=== PATIENT | female | born 1980 | race Caucasian/White ===

== ENCOUNTER 2019-03-07 06:07 | Day surgery (SDC) | payer BC ==
[~2019-03-07] VITALS: Ht 165.1 cm; Wt 70.7 kg
[2019-03-07] MEDS ORDERED: IBUP400 PO (07:00)
[2019-03-07] MEDS ORDERED: ACYC400 PO (07:01)
[2019-03-07] MEDS ORDERED: Women's Daily1 EACH PO (07:02)
[2019-03-07] MEDS ORDERED: Sleep Aid25 M1 PO (07:02)
[2019-03-07] MEDS ORDERED: ALBU90OI INH (07:03)
== END 2019-03-07 09:14 | disposition home or self-care (01) ==
LOC: ORSCSDS 06:07
PROVIDERS: Podiatrist Foot & Ankle Surgery
PROC: 0QSN04Z Reposition Right Metatarsal with Internal Fixation Device, Open Approach (ICD-10-PCS; principal; 2019-03-07 07:30)
PROC: 0SNP0ZZ Release Right Toe Phalangeal Joint, Open Approach (ICD-10-PCS; principal; 2019-03-07 07:30)
PROC: 0L8V0ZZ Division of Right Foot Tendon, Open Approach (ICD-10-PCS; principal; 2019-03-07 07:30)
DX: M20.11 Hallux valgus (acquired), right foot (principal); M20.41 Other hammer toe(s) (acquired), right foot; J45.909 Unspecified asthma, uncomplicated; Z79.899 Other long term (current) drug therapy
CPT/HCPCS: C1713; C1769; J0171; J0690; J2250; J2704; J3010; J7120

== ENCOUNTER → 2019-05-21 | Outpatient (CLI) | payer OTHER ==
[~2019-05-21] MED LIST: ACYC400 PO; ALBU90OI INH; IBUP400 PO; Sleep Aid25 M1 PO; Women's Daily1 EACH PO
[2019-05-23 22:07] LABS: CHLAMYDIA TRACHOMATIS, NAA Negative (Negative); NEISSERIA GONORRHOEAE, NAA Negative (Negative)
== END | disposition home or self-care (01) ==
LOC: LAB SHORT 15:43 → LAB 15:43
PROVIDERS: Obstetrics & Gynecology
DX: Z34.81 Encounter for supervision of other normal pregnancy, first trimester (principal)
CPT/HCPCS: 87491; 87591

== ENCOUNTER → 2019-12-23 | Outpatient (CLI) | payer OTHER ==
[~2019-12-23] MED LIST changes: +Loratadine10 MG PO; +PRENATAL TABLE1 EAC2
== END | disposition home or self-care (01) ==
LOC: LAB SHORT 17:22 → LAB 17:22
DX: O09.523 Supervision of elderly multigravida, third trimester (principal); Z3A.36 36 weeks gestation of pregnancy
CPT/HCPCS: 87081; 87653

== ENCOUNTER 2020-01-08 02:31 | Inpatient (IN) | payer OTHER ==
[~2020-01-08] VITALS: Ht 165.1 cm; Wt 81.8 kg
[~2020-01-08 02:31] MED LIST changes: -Loratadine10 MG PO; -PRENATAL TABLE1 EAC2
[2020-01-08] MEDS ORDERED: Loratadine10 MG PO (06:44)
[2020-01-08] MEDS ORDERED: PRENATAL TABLE1 EAC2 (06:45)
[2020-01-08 06:55] LABS: BASOPHILS ABSOLUTE AUTO 0.08 K/mm3 (0.00-0.23); BASOPHILS PERCENT AUTO 0 % (0-2); EOSINOPHILS ABSOLUTE AUTO 0.37 K/mm3 (0.00-0.68); EOSINOPHILS PERCENT AUTO 2 % (0-6); Hematocrit 43.8 % (33.0-51.0); Hemoglobin 14.3 g/dL (11.5-16.0); IMMATURE GRAN ABSOLUTE AUTO 0.17 K/mm3 (0.00-0.10); IMMATURE GRAN PERCENT AUTO 1 % (0-1); LYMPHOCYTES ABSOLUTE AUTO 2.52 K/mm3 (0.84-5.20); LYMPHOCYTES PERCENT AUTO 14 % (21-46); MONOCYTES ABSOLUTE AUTO 1.12 K/mm3 (0.16-1.47); MONOCYTES PERCENT AUTO 6 % (4-13); Mean Corpuscular HGB 30.2 pg (26.0-34.0); Mean Corpuscular HGB Conc 32.6 g/dL (31.5-36.5); Mean Corpuscular Volume 93 fL (80-100); Mean Platelet Volume 11.1 fL (9.1-12.4); NEUTROPHILS ABSOLUTE AUTO 14.43 K/mm3 (1.96-9.15); NEUTROPHILS PERCENT AUTO 77 % (41-73); Platelet Count 191 K/mm3 (150-400); RDW Coefficient Variation 13.1 % (11.7-14.2); Red Blood Cell Count 4.73 M/mm3 (3.80-5.20); White Blood Cell Count 18.69 K/mm3 (4.00-11.30)
--- NOTE | 2020-01-08 20:08 | NUR ---
pt and nb sleeping at this time. FOB states will call when they wake up for assessment and VS.
[2020-01-09 05:44] LABS: BASOPHILS ABSOLUTE AUTO 0.04 K/mm3 (0.00-0.23); BASOPHILS PERCENT AUTO 0 % (0-2); EOSINOPHILS PERCENT AUTO 3 % (0-6); Hematocrit 36.6 % (33.0-51.0); IMMATURE GRAN ABSOLUTE AUTO 0.11 K/mm3 (0.00-0.10); IMMATURE GRAN PERCENT AUTO 1 % (0-1); LYMPHOCYTES ABSOLUTE AUTO 2.71 K/mm3 (0.84-5.20); LYMPHOCYTES PERCENT AUTO 17 % (21-46); MONOCYTES PERCENT AUTO 7 % (4-13); Mean Corpuscular HGB 30.4 pg (26.0-34.0); Mean Corpuscular HGB Conc 32.8 g/dL (31.5-36.5); Mean Corpuscular Volume 93 fL (80-100); Mean Platelet Volume 11.1 fL (9.1-12.4); NEUTROPHILS ABSOLUTE AUTO 11.55 K/mm3 (1.96-9.15); NEUTROPHILS PERCENT AUTO 73 % (41-73); Platelet Count 170 K/mm3 (150-400); RDW Coefficient Variation 13.2 % (11.7-14.2); RDW Standard Deviation 44.9 fL (35.1-46.3); Red Blood Cell Count 3.95 M/mm3 (3.80-5.20); White Blood Cell Count 15.91 K/mm3 (4.00-11.30)
--- NOTE | 2020-01-09 14:23 | NUR ---
REPORT OFF TO ERASTO MOSES
== END 2020-01-09 15:25 | disposition home or self-care (01) | DRG 807 ==
LOC: BC 02:31 → OBS 02:31 → BC 06:32
PROVIDERS: ADMIT Obstetrics & Gynecology
PROC: 10E0XZZ Delivery of Products of Conception, External Approach (ICD-10-PCS; principal; 2020-01-08)
PROC: 0KQM0ZZ Repair Perineum Muscle, Open Approach (ICD-10-PCS; 2020-01-08)
PROC: 10907ZC Drainage of Amniotic Fluid, Therapeutic from Products of Conception, Via Natural or Artificial Opening (ICD-10-PCS; 2020-01-08)
PROC: 00HU33Z Insertion of Infusion Device into Spinal Canal, Percutaneous Approach (ICD-10-PCS; 2020-01-08)
PROC: 3E0R3BZ Introduction of Anesthetic Agent into Spinal Canal, Percutaneous Approach (ICD-10-PCS; 2020-01-08)
DX: O70.1 Second degree perineal laceration during delivery (principal); Z37.0 Single live birth; Z3A.38 38 weeks gestation of pregnancy
CPT/HCPCS: 36415; 51702; 59025; 85025; 86850; 86900; 86901; A9270; J1885; J2001; J2210; J2270; J2550; J2590; J3010; J7120

== ENCOUNTER → 2024-10-17 | Outpatient (CLI) | payer OTHER ==
[~2024-10-17] MED LIST changes: +Loratadine10 MG PO; +PRENATAL TABLE1 EAC2
== END ==
LOC: LAB SHORT 08:00 → LAB 08:00
DX: N85.8 Other specified noninflammatory disorders of uterus (principal); N93.9 Abnormal uterine and vaginal bleeding, unspecified
CPT/HCPCS: 88305

== ENCOUNTER → 2024-10-17 | Outpatient (CLI) | payer OTHER | LOC: LAB SHORT 16:19 → LAB 16:19 | PROVIDERS: Obstetrics & Gynecology | DX: Z12.4 Encounter for screening for malignant neoplasm of cervix (principal) | CPT/HCPCS: 87624; G0123 ==

== ENCOUNTER 2024-12-23 10:02 | Day surgery (SDC) | payer OTHER ==
[~2024-12-23] VITALS: Ht 165.1 cm; Wt 64.5 kg
[2024-12-23] VITALS (10 sets, daily range): BP systolic 111–135; BP diastolic 65–99
[~2024-12-23 10:02] MED LIST changes: +ACET500 PO; +BUDESONIDE; +Bupivacaine 0.5% W/EPI 1:200000 SDV 30 ML Vial ONE; +CeFAZolin Sodium 2,000 MG in NS 100 ML IV SCH; +EYE ALLERGY ITCH5 ML BOTHEYES; +FLUT1DIS5 INH; +FentaNYL Citrate 50 MCG/ML 2 ML Injection ONE; +IBUP800 PO; +Midazolam HCl 1MG / ML 2ML Vial ONE; +ONDA4 PO; +OXYC5 PO; +XYZAL5 MG PO
[2024-12-23] MEDS ORDERED: MOUNJARO10 MG/0.5 SC (10:19)
[2024-12-23] MEDS ORDERED: ATOMOXETINE HCL80 M1 PO (10:20)
[2024-12-23] MEDS ORDERED: Atarax10 MG PO (10:21)
[2024-12-23] MEDS ORDERED: Dexamethasone Sod Phos 10 MG/ML 1ML VIAL ONE (10:56)
[2024-12-23] MEDS ORDERED: Ondansetron HCl 2 MG / ML 2ML Vial ONE (10:56)
[2024-12-23] MEDS ORDERED: Rocuronium Bromide 10 MG/ML 5ML Injection IV ONE ×2 (10:56→11:01)
[2024-12-23] MEDS ORDERED: Sugammadex Sodium 200 MG/2ML SDV (100 MG/ML) ONE ×2 (11:01→13:17)
[2024-12-23] MEDS ORDERED: HYDROmorphone HCl/Pf 1MG SYR ONE (12:18)
[2024-12-23] MEDS ORDERED: Ketorolac Tromethamine 30mg Vial ONE (12:19)
[2024-12-23] MEDS ORDERED: FLU VACC TS2025-26(6MOS UP)/PF 45 MCG/0.5 ML SYRINGE IM SCH (13:20)
[2024-12-23] MEDS ORDERED: HYDROmorphone HCl/Pf 1MG SYR IV PRN (13:25)
[2024-12-23] MEDS ORDERED: Naloxone HCl 0.4MG / ML 1ML Vial IV PRN (13:30)
[2024-12-23] MEDS ORDERED: Metoclopramide HCl 5MG / ML 2ML Vial IV PRN (13:30)
[2024-12-23] MEDS ORDERED: Ondansetron HCl 2 MG / ML 2ML Vial IV PRN (13:35)
[2024-12-23] MEDS ORDERED: Formoterol/Mometasone MDI 5/200 mcg 13 GM INH SCH (13:40)
[2024-12-23] MEDS ORDERED: Albuterol HFA200 ACT/6.7 GM INH INH PRN (13:40)
--- NOTE | 2024-12-23 14:07 | NUR ---
TRANSFER NOTE AFTER RECEIVING REPORT FROM [facility], PATIENT TRANSFERRED TO UNIT AT APPROX 1355. PATIENT ALERT - COMMUNICATING NEEDS EFFECTIVELY. VSS. TITRATED FROM 2L VIA NC TO ROOM AIR - SATs SUSTAINING >90%. LUNG SOUNDS CLEAR. DENIES SOB. S/P LAP HYSTER. DENIES PAIN AT THIS TIME - KPAD APPLIED TO ABD. X5 LAP SITES W/ WOUND GLUE C/D/I. NO BLEEDING TO ROGER PAD. DENIES N/V - TOLERATING SIPS OF WATER AND CRACKERS. IVF INFUSING PER EMAR. AWAITING POST OP VOID. CALL LIGHT IN REACH.
--- NOTE | 2024-12-23 17:21 | NUR ---
DISCHARGE NOTE NO ACUTE CHANGES SINCE TRANSFER NOTE. S/P LAP HYSTER. VSS. PAIN TOLERABLE W/ PRESCRIBED THERAPY. X5 LAP SITES C/D/I. SCANT BLEEDING ON ROGER PAD. TOLERATING PO INTAKE. VOIDING. IV REMOVED. WRITTEN AND VERBAL EDUCATION PROVIDED - PATIENT STATES UNDERSTANDING. PATIENTs FAMILY TO TRANSPORT PATIENT HOME. PATIENT TRANSFERRED TO PERSONAL VEHICLE VIA .
[2024-12-23] MEDS ORDERED: Ketorolac Tromethamine 30mg Vial IV SCH (18:00)
[2024-12-23] MEDS ORDERED: Misc. Tablet PO SCH (21:00)
[2024-12-24] MEDS ORDERED: Enoxaparin 40 MG/0.4 ML SYR SC SCH (09:00)
[2024-12-24] MEDS ORDERED: Polyethylene Glycol 3350 17 gm PO SCH (09:00)
[2024-12-24] MEDS ORDERED: Atomoxetine HCL 40 MG Cap PO SCH (09:00)
== END 2024-12-23 17:20 | disposition home or self-care (01) ==
LOC: ORSCMMR 10:02 → ORD 11:30 → ORSCMMR 11:30 → SURS 13:47 → ORSCMMR 17:20
PROVIDERS: Obstetrics & Gynecology
PROC: 0UT9FZZ Resection of Uterus, Via Natural or Artificial Opening With Percutaneous Endoscopic Assistance (ICD-10-PCS; principal; 2024-12-23 11:30)
PROC: 0UT7FZZ Resection of Bilateral Fallopian Tubes, Via Natural or Artificial Opening With Percutaneous Endoscopic Assistance (ICD-10-PCS; principal; 2024-12-23 11:30)
DX: N93.9 Abnormal uterine and vaginal bleeding, unspecified (principal); N80.03 Adenomyosis of the uterus; Q50.5 Embryonic cyst of broad ligament; J45.909 Unspecified asthma, uncomplicated; Z87.891 Personal history of nicotine dependence; Z79.899 Other long term (current) drug therapy
CPT/HCPCS: 88307; A9270; J0690; J1100; J1171; J1885; J2250; J2405; J2704; J3010; J7120

== ENCOUNTER → 2025-01-27 | Outpatient (CLI) | payer OTHER ==
[~2025-01-27] MED LIST changes: +ATOMOXETINE HCL80 M1 PO; +Atarax10 MG PO; -Bupivacaine 0.5% W/EPI 1:200000 SDV 30 ML Vial ONE; -CeFAZolin Sodium 2,000 MG in NS 100 ML IV SCH; -FentaNYL Citrate 50 MCG/ML 2 ML Injection ONE; +MOUNJARO10 MG/0.5 SC; -Midazolam HCl 1MG / ML 2ML Vial ONE
[2025-01-27 19:28] LABS: Source, Urine Clean Catch
[2025-01-27 20:12] LABS: Bilirubin, Urine Neg (Neg); Color, Urine Yellow (P-Yellow); Glucose Qualitative, Urine Neg (Neg); Ketones, Urine Neg (Neg); Leukocyte Esterase, Urine 2+ (Neg); Protein, Urine 1+ (Neg); Specific Gravity, Urine 1.020 (1.003-1.022); Urobilinogen, Urine NORM (Normal)
[2025-01-27 20:19] LABS: White Blood Cells, Urine 25-50 /hpf (0-5)
[2025-01-28 10:17] LABS: Candida Group, PCR NOT DETECTED (NOT DETECT); Candida glabrata-krusei, PCR NOT DETECTED (NOT DETECT)
[2025-01-28 12:12] LABS: Bacterial Vaginosis PCR Positive (NEGATIVE)
== END ==
LOC: LAB SHORT 19:26 → LAB 19:26
PROVIDERS: Obstetrics & Gynecology
DX: R30.0 Dysuria (principal)
CPT/HCPCS: 81001; 81515; 87077; 87086; 87186